=== PATIENT | female | born 1950 | race Caucasian/White ===

== ENCOUNTER → 2017-08-19 14:45 | Outpatient (CLI) | payer MEDICARE, OTHER, SELFPAY | PROVIDERS: Family Provider Family Medicine; PCP Family Medicine; Visit Provider Physician Assistant | DX: N39.0 Urinary tract infection, site not specified (principal) | CPT/HCPCS: 87086 ==

== ENCOUNTER → 2018-03-08 12:57 | Outpatient (CLI) | payer MEDICARE, OTHER, SELFPAY | PROVIDERS: Family Provider Family Medicine; PCP Family Medicine; Visit Provider Physician Assistant | DX: R39.89 Other symptoms and signs involving the genitourinary system (principal) | CPT/HCPCS: 87086 ==

== ENCOUNTER → 2018-03-14 08:47 | Outpatient (CLI) | payer MEDICARE, OTHER, SELFPAY ==
[2018-03-14 09:57] LABS: Influenza A and B by PCR Rapid Negative (Negative)
== END ==
PROVIDERS: Family Provider Family Medicine; PCP Family Medicine; Visit Provider Physician Assistant
DX: R68.89 Other general symptoms and signs (principal)
CPT/HCPCS: 87400

== ENCOUNTER 2018-03-14 09:13 | Emergency (ER) | payer MEDICARE, OTHER, SELFPAY ==
[2018-03-14 09:30] VITALS: BP 133/62; PULSE 79; RESP 18; TEMP 36.9; O2SAT 97
--- NOTE | 2018-03-14 09:41 | DI.RAD.S_ITS ---
PROCEDURE: XR CHEST 1V INDICATIONS: sepsis TECHNIQUE: One view of the chest was acquired. COMPARISON: [facility], CR, SHOULDER MINIMUM 2 VIEW LEFT, 09/25/2010, 13:22. FINDINGS: Surgical changes and devices: None. Lungs and pleura: No pleural effusions or pneumothorax. Lungs are clear. Mediastinum: Mediastinal contours appear normal. Heart size is normal. Bones and chest wall: Sclerotic lesion projecting in the surgical neck of the left humerus is unchanged since 09/25/10. IMPRESSION: No acute disease. Dictated by: Wolf Snider M.D. on 03/14/2018 at 10:22 Approved by: Wolf Snider M.D. on 03/14/2018 at 10:23
[2018-03-14 10:15] VITALS: TEMP 37.1
[2018-03-14] MEDS: KETOROLAC 60 MG/2 ML VIAL 15 MG IV (10:15)
[2018-03-14 10:19] LABS: Add Manual Diff / Slide Review NO; Basophils Absolute Auto 0 /uL (0-100); Basophils Percent Auto 0.3 % (0-2); Eosinophils Absolute Auto 0 /uL (0-450); Eosinophils Percent Auto 0.3 % (2-4); Hematocrit 40.4 % (36-46); Hemoglobin 13.4 g/dL (12.0-16.0); Lymphocytes Absolute Auto 500 /uL (1100-4500); Mean Corpuscular HGB Conc 33.2 % (30-36); Mean Corpuscular Hemoglobin 30.7 PG (26-34); Mean Corpuscular Volume 92.5 fL (80-100); Monocytes Absolute Auto 1200 /uL (0-900); Monocytes Percent Auto 9.4 % (3-14); Neutrophils Absolute Auto 11300 /uL (1500-7000); Platelet Count 219 X10^3/uL (150-400); Red Blood Cell Count 4.37 X10^6/uL (4.0-5.2); Red Cell Distribution Width 13.2 % (11.6-14.8); White Blood Cell Count 13.1 X10^3/uL (4.5-11.0)
[2018-03-14] MEDS: SODIUM CHLORIDE 0.9% 1,700.97 ML 566.99 ML IV (10:19)
[2018-03-14 10:30] VITALS: BP 140/87; PULSE 77; RESP 17; TEMP 37.1; O2SAT 98
[2018-03-14 10:39] LABS: Alanine Aminotransferase 31 IU/L (9-52); Albumin 4.7 g/dL (3.5-5.0); Albumin Globulin Ratio 1.3 (1.0-2.8); Alkaline Phosphatase 48 U/L (38-126); Aspartate Aminotransferase 48 IU/L (14-36); Bilirubin Total 0.6 mg/dL (0.2-1.3); Blood Urea Nitrogen 10 mg/dL (7-17); Calcium 9.5 mg/dL (8.4-10.2); Carbon Dioxide 28 mmol/L (22-32); Chloride 96 mmol/L (98-107); Estimated Glomerular Filt Rate > 60.0 mL/min (>60); Globulin 3.5 g/dL (1.7-4.1); Glucose 104 mg/dL (80-110); Potassium 4.5 mmol/L (3.4-5.1); Sodium 136 mmol/L (137-145); Total Protein 8.2 g/dL (6.3-8.2)
[2018-03-14 10:41] LABS: HEMOLYSIS 77 (0-50)
[2018-03-14 10:44] LABS: Lactate (Lactic Acid) 1.1 mmol/L (0.7-2.1)
[2018-03-14 10:55] LABS: Procalcitonin < 0.05 ng/mL (<0.5)
[2018-03-14 11:30] VITALS: BP 139/76; PULSE 75; RESP 16; O2SAT 97
[2018-03-14 11:46] LABS: Bacteria Urine Few (2-10); Culture Indicated Urine Specimen Cultured; RBC Urine 1-5/HPF (0-5/HPF); Squamous Epithelial Cell Urine 1-5 /HPF; WBC Urine 1-5/HPF (0-5/HPF)
[2018-03-14 12:21] VITALS: BP 141/78; PULSE 105; RESP 16; O2SAT 98
[2018-03-14 12:40] VITALS: BP 142/87; PULSE 76; RESP 16; TEMP 37.9; O2SAT 99
--- NOTE | 2018-03-14 12:47 | PC.NURSE ---
Patient is shivering, temp 100.2 orally. Patient refuses tylenol. DO Ramos aware, ok to DC.
[2018-03-14 14:10] LABS: Adenovirus F 40/41 Not Detected (Not Detect); Astrovirus Not Detected (Not Detect); Campylobacter Not Detected (Not Detect); Clostridium difficile toxin AB Not Detected (Not Detect); Cryptosporidium Not Detected (Not Detect); Cyclospora cayetanensis Not Detected (Not Detect); Entamoeba histolytica Not Detected (Not Detect); Enteroaggregative E.coli Not Detected (Not Detect); Enteropathogenic E.coli Not Detected (Not Detect); Enterotoxigenic E.coli It/st Not Detected (Not Detect); Giardia lamblia Not Detected (Not Detect); Norovirus GI/GII Not Detected (Not Detect); Plesiomonsa shigelloides Not Detected (Not Detect); Rotavirus A Not Detected (Not Detect); Salmonella Not Detected (Not Detect); Sapovirus Not Detected (Not Detect); Shiga-like toxin-prod E.coli Not Detected (Not Detect); Shigella/Enteroinvasive E.coli Not Detected (Not Detect); Vibrio Not Detected (Not Detect); Vibrio cholerae Not Detected (Not Detect); Yersinia enterocolitica Not Detected (Not Detect)
--- NOTE | 2018-03-14 14:47 | ED_ITS ---
HPI - Fever General Chief Complaint: Abdominal Pain Stated Complaint: having flu Symptoms. Time Seen by Provider: 03/14/18 09:24 Source: patient and family Mode of arrival: ambulatory Limitations: no limitations History of Present Illness HPI Narrative: 67-year-old female, nonsmoker with history of fibromyalgia and hypothyroidism presents from the walk-in clinic for evaluation of possible sepsis. She had been seen at the walk-in clinic about 1 week ago with classic UTI symptoms of dysuria, frequency and urgency and was placed on antibiotics. Her urine culture ended up being negative but the patient felt better until the past few days when she started developing multiple brought symptoms. She has had runny nose, nasal congestion and occasional sore throat with dry cough, subjective fever and chills, generalized abdominal discomfort and bloating with excessive flatus and occasional loose stools. She denies any rash or ongoing urinary complaints. She was recently in [place] but denies any obvious exposure to bad food. She has had no blood in her stool. MD complaint: fever, malaise and weakness Onset (ago): day(s) Temperature Source: subjective Context: recent travel Associated symptoms: chills, myalgias, headache, rhinorrhea, nasal congestion, sore throat, cough, abdominal pain, nausea and diarrhea Relieving factors: nothing Related Data Previous Rx's Medication Instructions Recorded triamcinolone acetonide [Triderm] 1 thuan TOPICAL BID #90 gm 04/02/17 progesterone micronized 200 mg 200 mg PO .COMPLEX #30 cap 10/02/17 capsule estradiol 1 mg tablet 1 mg PO QDAY #90 tab 10/21/17 liothyronine 25 mcg tablet 25 mcg PO DAILY #90 tab 12/17/17 levothyroxine 100 mcg tablet 100 mcg PO DAILY #90 tab 03/06/18 nitrofurantoin 100 mg PO BID 7 Days #14 cap 03/08/18 monohydrate/macrocrystals 100 mg capsule ciprofloxacin HCl 500 mg PO Q12H #20 tab 03/14/18 ketorolac 10 mg PO Q6H PRN #14 tab 03/14/18 metronidazole [Flagyl] 500 mg PO TID #30 tab 03/14/18 ondansetron 4 mg PO Q6-8H PRN #10 tab 03/14/18 Allergies Allergy/AdvReac Type Severity Reaction Status Date / Time codeine [CODEINE] Allergy Mild GI UPSET Verified 03/14/18 09:36 latex [LATEX] Allergy Mild ITCHY, Verified 03/14/18 09:36 REDNESS FROM PT TAPE Sulfa (Sulfonamide Allergy Mild UPSET Verified 03/14/18 09:36 Antibiotics) STOMACH [SULFA (SULFONAMIDE ANTIBIOTICS)] Review of Systems Constitutional Reports chills, Reports fever(s), Reports lethargy and Reports weakness Eyes Denies change in vision, Denies eye discharge, Denies irritation and Denies loss of vision ENT Ears, Nose, Mouth, and Throat: Denies change in voice, Reports nasal congestion , Reports nasal discharge, Denies neck pain and Reports sore throat Cardiovascular Denies chest pain, Denies irregular heart rhythm, Denies lightheadedness, Denies palpitations, Denies dyspnea, Denies dyspnea on exertion and Denies orthopnea Respiratory Reports cough, Denies dyspnea, Denies dyspnea on exertion and Denies wheezing Gastrointestinal Gastrointestinal: Reports abdominal pain, Reports bloating, Denies change in bowel habits, Reports excessive flatus, Denies diarrhea, Denies nausea and Denies vomiting Genitourinary Denies hematuria, Denies flank pain, Denies urinary incontinence and Denies urinary urgency Musculoskeletal Denies neck pain Integumentary/Breasts Denies pruritus, Denies erythema, Denies rash and Denies wounds Neurologic Denies confusion, Denies loss of vision and Reports weakness Psychiatric Denies anxiety, Denies confusion, Denies depression, Denies homicidal ideation and Denies suicidal ideation Endocrine Denies palpitations Hematologic/Lymphatic Denies easy bruising Allergic/Immunologic Denies wheezing PFSH Surgical History Status post hysterectomy Status post sclerotherapy of varicose veins Status post sclerotherapy of varicose veins Family History Brother Age: 70 Arthritis Mother Cancer Hypertension Social History Smoking Status: Never smoker Exam Narrative Exam Narrative: GENERAL: 67-year-old feel, appears to be uncomfortable and ill appearing. She is bundled up in warm blankets HEAD: Atraumatic. Normocephalic. No temporal or scalp tenderness. EYES: Pupils equal round and reactive. Extraocular motions intact. No scleral icterus. No injection or drainage. ENT: Clear nasal drainage bilaterally Nose without bleeding, purulent drainage or septal hematoma. Throat without erythema, tonsillar hypertrophy or exudate. Uvula midline. Airway patent. NECK: Trachea midline. No JVD or lymphadenopathy. Supple, nontender, no meningeal signs. CARDIOVASCULAR: Regular rate and rhythm without murmurs, gallops, or rubs. RESPIRATORY: Clear to auscultation. Breath sounds equal bilaterally. No wheezes , rales, or rhonchi. GASTROINTESTINAL: Abdomen soft, generalized discomfort with bloating and increased bowel sounds, nondistended. No hepato-splenomegaly, or palpable masses. No guarding. EXTREMITIES: No clubbing, cyanosis, or edema. No joint tenderness, effusion, or edema noted. BACK: Nontender without deformity or crepitance. No flank tenderness. NEURO: AOx3. SKIN: No rash or erythema. Initial Vital Signs Initial Vital Signs: Vital Signs Temperature 98.5 F 03/14/18 09:30 Pulse Rate 79 03/14/18 09:30 Respiratory Rate 18 03/14/18 09:30 Blood Pressure 133/62 03/14/18 09:30 Pulse Oximetry 97 03/14/18 09:30 Course Orders Ordered: ED Orders 03/14/18 09:41 XR chest 1V Stat 03/14/18 10:08 Complete Blood Count AUTO DIFF Stat Comprehensive Metabolic Panel Stat Lactate (Lactic Acid) Stat Procalcitonin Stat 03/14/18 10:22 Blood Culture Stat 03/14/18 10:30 Urine Culture Stat Urine Microscopic Stat 03/14/18 11:55 GI Panel Stat Discontinued Medications Sodium Chloride (Normal Saline 0.9%) 1,700.97 mls @ 566.99 mls/hr 30 ml/kg infuse over 3 hr (1700.97 ml) IV CONT JASMINA Last Infusion: 03/14/18 12:38 Dose: 0 mls/hr Admin: 03/14/18 10:19 Dose: 566.99 mls/hr Ketorolac Tromethamine (Toradol) 15 mg IV NOW ONE Stop: 03/14/18 09:43 Last Admin: 03/14/18 10:15 Dose: 15 mg Reevaluation(s) Reevaluation #1: Vital signs largely improved over duration of stay. She was able to produce a very small well-formed stool sample which was sent for GI panel Vital Signs - 8 hr 03/14/18 09:30 03/14/18 10:15 03/14/18 10:30 Temperature 98.5 F 98.7 F 98.7 F Pulse Rate 79 77 Respiratory Rate 18 17 Blood Pressure 133/62 Blood Pressure [Left Arm] 140/87 Pulse Oximetry 97 98 03/14/18 11:30 03/14/18 12:21 03/14/18 12:40 Temperature 100.2 F H Pulse Rate 75 105 H 76 Respiratory Rate 16 16 16 Blood Pressure Blood Pressure [Left Arm] 139/76 141/78 H 142/87 H Pulse Oximetry 97 98 99 MDM - Fever Lab Data Result diagrams: 03/14/18 10:08 03/14/18 10:08 Lab Results 03/14/18 03/14/18 03/14/18 Range/Units 10:08 10:08 10:08 WBC 13.1 H (4.5-11.0) X10^3/uL RBC 4.37 (4.0-5.2) X10^6/uL Hgb 13.4 (12.0-16.0) g/dL Hct 40.4 (36-46) % MCV 92.5 (80-100) fL MCH 30.7 (26-34) PG MCHC 33.2 (30-36) % RDW 13.2 (11.6-14.8) % Plt Count 219 (150-400) X10^3/uL Neut % (Auto) 86.0 H (50-75) % Lymph % (Auto) 4.0 L (25-40) % [place] % (Auto) 9.4 (3-14) % Eos % (Auto) 0.3 L (2-4) % Baso % (Auto) 0.3 (0-2) % Neut # (Auto) 00960 H (1159-5529) /uL Lymph # (Auto) 500 L (1032-3530) /uL [place] # (Auto) 1200 H (0-900) /uL Eos # (Auto) 0 (0-450) /uL Baso # (Auto) 0 (0-100) /uL Sodium 136 L (137-145) mmol/L Potassium 4.5 (3.4-5.1) mmol/L Chloride 96 L (98-107) mmol/L Carbon Dioxide 28 (22-32) mmol/L BUN 10 (7-17) mg/dL Creatinine 0.50 L (0.52-1.04) mg/dL Estimated GFR > 60.0 (>60) mL/min BUN/Creatinine Ratio 20.0 (6-22) Glucose 104 (80-110) mg/dL Lactate (0.7-2.1) mmol/L Calcium 9.5 (8.4-10.2) mg/dL Total Bilirubin 0.6 (0.2-1.3) mg/dL AST 48 H (14-36) IU/L ALT 31 (9-52) IU/L Alkaline Phosphatase 48 (38-126) U/L Total Protein 8.2 (6.3-8.2) g/dL Albumin 4.7 (3.5-5.0) g/dL Globulin 3.5 (1.7-4.1) g/dL Albumin/Globulin Ratio 1.3 (1.0-2.8) Procalcitonin < 0.05 (<0.5) ng/mL Urine RBC (0-5/HPF) Urine WBC (0-5/HPF) Ur Squamous Epith Cells Urine Bacteria (None) Ur Culture Indicated? Stl C. cayetanensis PCR (Not Detect) Stool Rotavirus (PCR) (Not Detect) Stool Adenovirus (PCR) (Not Detect) Stool Astrovirus (PCR) (Not Detect) Stool Cryptosporidium PCR (Not Detect) Stl E.coli Shiga Tox PCR (Not Detect) St Sh/Enteroin Ecoli PCR (Not Detect) Stool E coli O157 PCR (Not Detect) Stl Enterotoxigenic E PCR (Not Detect) Stool EPEC (PCR) (Not Detect) Stl E. histolytica PCR (Not Detect) Stool Giardia Lamblia PCR (Not Detect) Stool Sapovirus (PCR) (Not Detect) Stl P. shigelloides PCR (Not Detect) St Y.enterocolitica PCR (Not Detect) Stool Vibrio (PCR) (Not Detect) Stl Vibrio cholerae PCR (Not Detect) Stl Enteroaggr Ecoli PCR (Not Detect) Stl Norovirus GI/GII PCR (Not Detect) Campylobacter (PCR) (Not Detect) C. difficile Tox (PCR) (Not Detect) Salmonella (PCR) (Not Detect) 03/14/18 03/14/18 03/14/18 Range/Units 10:08 10:30 11:55 WBC (4.5-11.0) X10^3/uL RBC (4.0-5.2) X10^6/uL Hgb (12.0-16.0) g/dL Hct (36-46) % MCV (80-100) fL MCH (26-34) PG MCHC (30-36) % RDW (11.6-14.8) % Plt Count (150-400) X10^3/uL Neut % (Auto) (50-75) % Lymph % (Auto) (25-40) % [place] % (Auto) (3-14) % Eos % (Auto) (2-4) % Baso % (Auto) (0-2) % Neut # (Auto) (4956-0794) /uL Lymph # (Auto) (6020-0561) /uL [place] # (Auto) (0-900) /uL Eos # (Auto) (0-450) /uL Baso # (Auto) (0-100) /uL Sodium (137-145) mmol/L Potassium (3.4-5.1) mmol/L Chloride (98-107) mmol/L Carbon Dioxide (22-32) mmol/L BUN (7-17) mg/dL Creatinine (0.52-1.04) mg/dL Estimated GFR (>60) mL/min BUN/Creatinine Ratio (6-22) Glucose (80-110) mg/dL Lactate 1.1 (0.7-2.1) mmol/L Calcium (8.4-10.2) mg/dL Total Bilirubin (0.2-1.3) mg/dL AST (14-36) IU/L ALT (9-52) IU/L Alkaline Phosphatase (38-126) U/L Total Protein (6.3-8.2) g/dL Albumin (3.5-5.0) g/dL Globulin (1.7-4.1) g/dL Albumin/Globulin Ratio (1.0-2.8) Procalcitonin (<0.5) ng/mL Urine RBC 1-5/hpf (0-5/HPF) Urine WBC 1-5/hpf (0-5/HPF) Ur Squamous Epith Cells 1-5 /hpf Urine Bacteria Few (2-10) H (None) Ur Culture Indicated? Specimen cultured Stl C. cayetanensis PCR Not detected (Not Detect) Stool Rotavirus (PCR) Not detected (Not Detect) Stool Adenovirus (PCR) Not detected (Not Detect) Stool Astrovirus (PCR) Not detected (Not Detect) Stool Cryptosporidium PCR Not detected (Not Detect) Stl E.coli Shiga Tox PCR Not detected (Not Detect) St Sh/Enteroin Ecoli PCR Not detected (Not Detect) Stool E coli O157 PCR Not detected (Not Detect) Stl Enterotoxigenic E PCR Not detected (Not Detect) Stool EPEC (PCR) Not detected (Not Detect) Stl E. histolytica PCR Not detected (Not Detect) Stool Giardia Lamblia PCR Not detected (Not Detect) Stool Sapovirus (PCR) Not detected (Not Detect) Stl P. shigelloides PCR Not detected (Not Detect) St Y.enterocolitica PCR Not detected (Not Detect) Stool Vibrio (PCR) Not detected (Not Detect) Stl Vibrio cholerae PCR Not detected (Not Detect) Stl Enteroaggr Ecoli PCR Not detected (Not Detect) Stl Norovirus GI/GII PCR Not detected (Not Detect) Campylobacter (PCR) Not detected (Not Detect) C. difficile Tox (PCR) Not detected (Not Detect) Salmonella (PCR) Not detected (Not Detect) Urine Dip Bedside Urine Glucose Negative Bedside Urine Bilirubin - Negative Bedside Urine Ketone + 15 Urine Specific [place] 1.010 Bedside Urine Occult Blood + Bedside Urine pH 8.0 Bedside Urine Protein +/- 15 Bedside Urine Urobilinogen - Negative Bedside Urine Nitrite - Negative Bedside Urine Leukocytes +/- 15 Esterase MDM Narrative Medical decision making narrative: Multiple etiologies for patient's symptoms considered including: [Multiple etiologies including flu, pneumonia, infectious diarrhea, and bacteremia, versus other were considered] Patient's symptoms improved or duration of stay with above-stated therapies. Findings and discharge diagnosis discussed with patient/family followed by verbalization of understanding Return precautions discussed with patient/family whom verbalize understanding. Discharge Plan Departure Patient Disposition: Home Clinical Impression: Acute viral syndrome Discharge Date/Time: 03/14/18 12:57 Interventions: ED Discharge Assessment Last Done: 03/14/18 12:56 Instructions: DI for Viral Syndrome Activity Restrictions/Additional Instructions: 1. Drink plenty of fluids with frequent small sips. 2. For the next 24 hours a clear liquid diet is advised. After that please employ a brat diet which would include bananas, rice, apples, toast. 3. Please take medications as directed. Prescriptions sent to [facility] at your request 4. Please follow-up with your doctor in the next 1-2 days. Call the office for an appointment. 5. Please return to the emergency Department for any worsening or persistent symptoms, such as increasing pain or fever. Prescriptions: New ketorolac 10 mg tablet 10 mg PO Q6H PRN (Reason: pain) Qty: 14 RF: 0 ondansetron 4 mg tablet,disintegrating 4 mg PO Q6-8H PRN (Reason: nausea and vomiting) Qty: 10 RF: 0 metronidazole [Flagyl] 500 mg tablet 500 mg PO TID Qty: 30 RF: 0 ciprofloxacin HCl 500 mg tablet 500 mg PO Q12H Qty: 20 RF: 0 No Action nitrofurantoin monohyd/m-cryst [Macrobid] 100 mg capsule 100 mg PO BID 7 Days Qty: 14 RF: 0 triamcinolone acetonide [Triderm] 0.1 % cream 1 thuan Topical BID Qty: 90 RF: 0 progesterone micronized 200 mg capsule 200 mg PO .COMPLEX Qty: 30 RF: 1 estradiol [Estrace] 1 mg tablet 1 mg PO QDAY Qty: 90 RF: 3 liothyronine [Cytomel] 25 mcg tablet 25 mcg PO DAILY Qty: 90 RF: 0 levothyroxine 100 mcg tablet 100 mcg PO DAILY Qty: 90 RF: 0 Referrals: Erik Hernandez MD [Primary Care Provider] -
== END 2018-03-14 12:57 | disposition home or self-care (01) ==
PROVIDERS: Emergency Provider Emergency Medicine; Family Provider Family Medicine; PCP Family Medicine
DX: B34.9 Viral infection, unspecified (principal)
CPT/HCPCS: 36415; 36591; 71045; 80053; 81003; 81015; 83605; 84145; 85025; 87040; 87077; 87086; 87147; 87400; 87507; 96361; 96374; 99283; 99284; J1885

== ENCOUNTER → 2018-07-04 09:37 | Outpatient (CLI) | payer MEDICARE, OTHER, SELFPAY ==
--- NOTE | 2018-07-04 | DI.RAD.S_ITS ---
PROCEDURE: XR SHOULDER LT MIN 2V INDICATIONS: LEFT SHOULDER PAIN TECHNIQUE: 3 views of the shoulder were acquired. COMPARISON: [facility], , SHOULDER MINIMUM 2 VIEW LEFT, 09/25/2010, 13:22. FINDINGS: Bones: No fractures or dislocations. No suspicious bony lesions. A stable sclerotic lesion of rings and arcs in the humeral neck. Visualized ribs appear intact. Soft tissues: Wispy, linear calcification adjacent to the greater tuberosity at the rotator cuff insertion. IMPRESSION: 1 increased prominence of linear calcification suggesting rotator cuff calcific tendinitis towards the insertion on the greater tuberosity. 2. Stable enchondroma in the humeral neck. Dictated by: Darlene Long M.D. on 07/04/2018 at 12:01 Approved by: Darlene Long M.D. on 07/04/2018 at 12:04
== END ==
PROVIDERS: PCP Family Medicine; Visit Provider Family Medicine
DX: M25.512 Pain in left shoulder (principal); D16.02 Benign neoplasm of scapula and long bones of left upper limb
CPT/HCPCS: 73030

== ENCOUNTER → 2018-07-14 15:45 | Outpatient (CLI) | payer MEDICARE, OTHER, SELFPAY ==
[2018-07-14 17:05] LABS: Free T4, Direct Thyroxine 0.82 ng/dL (0.78-2.19)
[2018-07-14 17:19] LABS: Thyroid Stimulating Hormone 0.05 uIU/mL (0.47-4.68)
== END ==
PROVIDERS: PCP Family Medicine; Visit Provider Family Medicine
DX: E03.9 Hypothyroidism, unspecified (principal)
CPT/HCPCS: 36415; 84439; 84443

== ENCOUNTER 2018-08-06 12:11 | Emergency (ER) | payer MEDICARE, OTHER, SELFPAY ==
[2018-08-06 12:22] VITALS: BP 174/95; PULSE 85; RESP 16; TEMP 36.8; O2SAT 99; BMI 22.6
[2018-08-06 12:33] VITALS: BP 147/67; PULSE 81; O2SAT 99
[2018-08-06 12:44] LABS: Bacteria Urine None Seen
[2018-08-06 12:48] LABS: Add Manual Diff / Slide Review NO; Basophils Absolute Auto 0 /uL (0-100); Basophils Percent Auto 0.9 % (0-2); Eosinophils Absolute Auto 0 /uL (0-450); Eosinophils Percent Auto 0.8 % (2-4); Hematocrit 36.7 % (36-46); Hemoglobin 12.8 g/dL (12.0-16.0); Lymphocytes Absolute Auto 1000 /uL (1100-4500); Lymphocytes Percent Auto 19.4 % (25-40); Mean Corpuscular HGB Conc 34.7 % (30-36); Mean Corpuscular Hemoglobin 31.7 PG (26-34); Mean Corpuscular Volume 91.4 fL (80-100); Monocytes Absolute Auto 500 /uL (0-900); Monocytes Percent Auto 9.8 % (3-14); Neutrophils Absolute Auto 3500 /uL (1500-7000); Neutrophils Percent Auto 69.1 % (50-75); Platelet Count 274 X10^3/uL (150-400); Red Blood Cell Count 4.02 X10^6/uL (4.0-5.2); Red Cell Distribution Width 13.6 % (11.6-14.8)
[2018-08-06] MEDS: SODIUM CHLORIDE 0.9% 1,000 ML 1000 ML IV (12:49)
[2018-08-06 12:54] LABS: Culture Indicated Urine Cult Not Indicated; RBC Urine 0-1/HPF (0-5/HPF); Squamous Epithelial Cell Urine 0-1 /HPF (0-5/HPF); WBC Urine 0-1/HPF (0-5/HPF)
--- NOTE | 2018-08-06 12:57 | ED_ITS ---
HPI - Abdominal Pain <Heather Sifuentes, COMM[employer]ITY [employer]ST [employer]ICER-[employer] - Last Filed: 08/06/18 17:05> General Chief Complaint: Abdominal Pain Stated Complaint: Abd Pain Time Seen by Provider: 08/06/18 12:13 Source: patient Mode of arrival: ambulatory Limitations: no limitations History of Present Illness HPI narrative: The patient is a 14 year old female nonsmoker with history of IBS and fibromyalgia who presents with a chief complaint of worsening abdominal pain for the past several weeks. She states that her current pain episode started several weeks ago, but has been worse over the past few days. She complains of nausea but no vomiting. She denies any fevers shortness of breath chest pain. She states she had diarrhea this morning. She states she alternates between constipation and diarrhea. She states she has a history of irritable bowel syndrome. She complains of urinary frequency, but denies dysuria or urgency. She denies any abnormal flank pain or back pain. She states the pain is in her whole abdomen and is worse when she eats. She has not tried anything to help feel better other than one 200 mg ibuprofen which made the pain worse. The patient states that she has had 3 different abdominal surgeries- 1 hysterectomy 1 exploratory and 1 for an ectopic even years ago. Related Data Previous Rx's Medication Instructions Recorded triamcinolone acetonide [Triderm] 1 thuan TOPICAL BID #90 gm 04/02/17 ciprofloxacin HCl 500 mg PO Q12H #20 tab 03/14/18 ketorolac 10 mg PO Q6H PRN #14 tab 03/14/18 metronidazole [Flagyl] 500 mg PO TID #30 tab 03/14/18 ondansetron 4 mg PO Q6-8H PRN #10 tab 03/14/18 conjugated estrogens 0.625 mg/gram 1 applictn VAG DAILY #30 gram 03/19/18 vaginal cream progesterone micronized 200 mg 200 mg PO .COMPLEX #30 cap 03/31/18 capsule levothyroxine 100 mcg tablet 100 mcg PO DAILY #90 tab 07/09/18 estradiol 1 mg tablet 1 mg PO QDAY #90 tab 07/14/18 pantoprazole [Protonix] 40 mg PO BID #30 tab 08/06/18 Allergies Allergy/AdvReac Type Severity Reaction Status Date / Time codeine [CODEINE] Allergy Mild GI UPSET Verified 08/06/18 13:15 latex [LATEX] Allergy Mild ITCHY, Verified 08/06/18 13:15 REDNESS FROM PT TAPE Sulfa (Sulfonamide Allergy Mild UPSET Verified 08/06/18 13:15 Antibiotics) STOMACH [SULFA (SULFONAMIDE ANTIBIOTICS)] Review of Systems <Heather Sifuentes COMMUNITY CHEST OFFICER- - Last Filed: 08/06/18 17:05> Review of Systems GENERAL: Denies chills, fatigue, malaise, fever, sweats. HEENT: Denies sinus pain, ear pain, sore throat, difficulty swallowing, dizziness. RESPIRATORY: Denies dyspnea, cough, wheezing, hemoptysis, sputum. CARDIOVASCULAR: Denies chest pain, palpitations, orthopnea, edema, GASTROINTESTINAL: See HPI : See HPI MUSCULOSKELETAL: denies weakness, joint pain, or bony pain SKIN: Denies rash, skin lesions, or other NEUROLOGIC: Denies weakness, headache, numbness, change in speech, confusion, seizures, incoordination. PSYCHIATRIC: No concerning psychosocial issues. 12 point review of systems is negative except for those stated above PFSH <Heather DevlinSAMUEL [facility]onC[facility] - Last Filed: 08/06/18 17:05> Social History marital status: Smoking Status: Never smoker alcohol intake: current (1-2 A DAY ) substance use type: does not use Exam <Heather Sifuentes [facility] - Last Filed: 08/06/18 17:05> Narrative Exam Narrative: GENERAL: Thin female lying on stretcher, anxious appearing HEAD: Atraumatic. Normocephalic. No temporal or scalp tenderness. EYES: Pupils equal round and reactive. Extraocular motions intact. No scleral icterus. No injection or drainage. ENT: Nose without bleeding, purulent drainage or septal hematoma. Throat without erythema, tonsillar hypertrophy or exudate. Uvula midline. Airway patent. NECK: Trachea midline. No JVD or lymphadenopathy. Supple, nontender, no meningeal signs. CARDIOVASCULAR: Regular rate and rhythm without murmurs, gallops, or rubs. RESPIRATORY: Clear to auscultation. Breath sounds equal bilaterally. No wheezes, rales, or rhonchi. GASTROINTESTINAL: Abdomen soft, diffusely tender, nondistended. No hepato- splenomegaly, or palpable masses. No guarding. Active bowel sounds all 4 quadrants EXTREMITIES: No clubbing, cyanosis, or edema. No joint tenderness, effusion, or edema noted. BACK: Nontender without deformity or crepitance. No flank tenderness. NEURO: AOx3. SKIN: No rash or erythema. Initial Vital Signs Initial Vital Signs: Vital Signs Temperature 98.3 F 08/06/18 12:22 Pulse Rate 85 08/06/18 12:22 Respiratory Rate 16 08/06/18 12:22 Blood Pressure 174/95 H 08/06/18 12:22 Pulse Oximetry 99 08/06/18 12:22 <Garcia Baker DO - Last Filed: 08/06/18 17:11> Initial Vital Signs Initial Vital Signs: Vital Signs Temperature 98.3 F 08/06/18 12:22 Pulse Rate 85 08/06/18 12:22 Respiratory Rate 16 08/06/18 12:22 Blood Pressure 174/95 H 08/06/18 12:22 Pulse Oximetry 99 08/06/18 12:22 Course <VIKTOR Rome - Last Filed: 08/06/18 17:05> Orders Ordered: ED Orders 08/06/18 12:28 Urine Microscopic Stat 08/06/18 12:42 Amylase Stat Complete Blood Count AUTO DIFF Stat Comprehensive Metabolic Panel Stat Lipase Stat 08/06/18 13:13 CT abdomen pelvis w con Stat Discontinued Medications Al Hydrox/Mg Hydrox/Simethicone 20 ml/ Lidocaine HCl 15 ml 0 ml PO NOW ONE Stop: 08/06/18 14:15 Last Admin: 08/06/18 14:32 Dose: 35 ml Sodium Chloride (Normal Saline 0.9%) 1,000 mls @ 1,000 mls/hr IV BOLUS ONE Stop: 08/06/18 13:27 Last Infusion: 08/06/18 14:40 Dose: 0 mls/hr Admin: 08/06/18 12:49 Dose: 1,000 mls/hr Ondansetron HCl (Zofran) 4 mg IV NOW ONE Stop: 08/06/18 12:29 Last Admin: 08/06/18 12:49 Dose: Not Given Vital Signs - 8 hr 08/06/18 12:22 08/06/18 12:33 08/06/18 13:32 Temperature 98.3 F Pulse Rate 85 81 67 Respiratory Rate 16 Blood Pressure 174/95 H Blood Pressure [Left Arm] 147/67 H 126/50 L Pulse Oximetry 99 99 96 08/06/18 13:49 08/06/18 14:37 Temperature 98.1 F Pulse Rate 64 66 Respiratory Rate 16 16 Blood Pressure Blood Pressure [Left Arm] 126/50 L 120/55 L Pulse Oximetry 100 100 <Garcia Baker DO - Last Filed: 08/06/18 17:11> Orders Ordered: ED Orders 08/06/18 12:28 Urine Microscopic Stat 08/06/18 12:42 Amylase Stat Complete Blood Count AUTO DIFF Stat Comprehensive Metabolic Panel Stat Lipase Stat 08/06/18 13:13 CT abdomen pelvis w con Stat Discontinued Medications Al Hydrox/Mg Hydrox/Simethicone 20 ml/ Lidocaine HCl 15 ml 0 ml PO NOW ONE Stop: 08/06/18 14:15 Last Admin: 08/06/18 14:32 Dose: 35 ml Sodium Chloride (Normal Saline 0.9%) 1,000 mls @ 1,000 mls/hr IV BOLUS ONE Stop: 08/06/18 13:27 Last Infusion: 08/06/18 14:40 Dose: 0 mls/hr Admin: 08/06/18 12:49 Dose: 1,000 mls/hr Ondansetron HCl (Zofran) 4 mg IV NOW ONE Stop: 08/06/18 12:29 Last Admin: 08/06/18 12:49 Dose: Not Given Vital Signs - 8 hr 08/06/18 12:22 08/06/18 12:33 08/06/18 13:32 Temperature 98.3 F Pulse Rate 85 81 67 Respiratory Rate 16 Blood Pressure 174/95 H Blood Pressure [Left Arm] 147/67 H 126/50 L Pulse Oximetry 99 99 96 08/06/18 13:49 08/06/18 14:37 Temperature 98.1 F Pulse Rate 64 66 Respiratory Rate 16 16 Blood Pressure Blood Pressure [Left Arm] 126/50 L 120/55 L Pulse Oximetry 100 100 MDM - Abdominal Pain <VIKTOR [place] - Last Filed: 08/06/18 17:05> Lab Data Result diagrams: 08/06/18 12:42 08/06/18 12:42 Lab Results 08/06/18 08/06/18 08/06/18 Range/Units 12:28 12:42 12:42 WBC 5.0 (4.5-11.0) X10^3/uL RBC 4.02 (4.0-5.2) X10^6/uL Hgb 12.8 (12.0-16.0) g/dL Hct 36.7 (36-46) % MCV 91.4 (80-100) fL MCH 31.7 (26-34) PG MCHC 34.7 (30-36) % RDW 13.6 (11.6-14.8) % Plt Count 274 (150-400) X10^3/uL Neut % (Auto) 69.1 (50-75) % Lymph % (Auto) 19.4 L (25-40) % [place] % (Auto) 9.8 (3-14) % Eos % (Auto) 0.8 L (2-4) % Baso % (Auto) 0.9 (0-2) % Neut # (Auto) 3500 (1201-4832) /uL Lymph # (Auto) 1000 L (5666-2139) /uL [place] # (Auto) 500 (0-900) /uL Eos # (Auto) 0 (0-450) /uL Baso # (Auto) 0 (0-100) /uL Sodium 135 L (137-145) mmol/L Potassium 4.2 (3.4-5.1) mmol/L Chloride 99 (98-107) mmol/L Carbon Dioxide 27 (22-32) mmol/L BUN 11 (7-17) mg/dL Creatinine 0.60 (0.52-1.04) mg/dL Estimated GFR > 60.0 (>60) mL/min BUN/Creatinine Ratio 18.3 (6-22) Glucose 91 (80-110) mg/dL Calcium 9.5 (8.4-10.2) mg/dL Total Bilirubin 0.6 (0.2-1.3) mg/dL AST 45 H (14-36) IU/L ALT 28 (9-52) IU/L Alkaline Phosphatase 36 L (38-126) U/L Total Protein 7.3 (6.3-8.2) g/dL Albumin 4.4 (3.5-5.0) g/dL Globulin 2.9 (1.7-4.1) g/dL Albumin/Globulin Ratio 1.5 (1.0-2.8) Amylase 126 H (30-110) U/L Lipase 91 (23-300) U/L Urine RBC 0-1/hpf (0-5/HPF) Urine WBC 0-1/hpf (0-5/HPF) Ur Squamous Epith Cells 0-1 /hpf (0-5/HPF) Urine Bacteria None seen (None) Ur Culture Indicated? Cult not indicated Point of care testing: Urine Dip Bedside Urine Glucose Negative Bedside Urine Bilirubin - Negative Bedside Urine Ketone - Negative Urine Specific [place] 1.015 Bedside Urine Occult Blood +/- Bedside Urine pH 7.5 Bedside Urine Protein - Negative Bedside Urine Urobilinogen - Negative Bedside Urine Nitrite - Negative Bedside Urine Leukocytes - Negative Esterase Imaging Data CT scan - abdomen: Radiologist's impression: [address] [address] [address] Scan Report Signed Patient: Mariama Frey MARY#: [id number] : 9Acct:[id number] Age/Sex: 67 / FDate of Service: 08/06/18 Loc: ED Accession Number: [id number] Procedure: CT abdomen pelvis w con Ordering Provider: Heather SifuentesP- PROCEDURE: CT ABDOMEN PELVIS W CON INDICATIONS: abd pain, elevated amylase TECHNIQUE: After the administration of intravenous contrast, 5 mm thick sections acquired from the diaphragm to the symphysis. 5 mm coronal and sagittal reformats were acquired. For radiation dose reduction, the following was used: automated exposure control, adjustment of mA and/or kV according to patient size. COMPARISON: [facility], CT, IVP (ABD & PEL WWO CONTRAST), 07/17/2012, 9:30. FINDINGS: Image quality: Excellent. ABDOMEN: Lung bases: Lung bases are clear. Heart size is normal. Solid organs: Liver is normal in size and enhancement. Gallbladder is unremarkable. Biliary system is non dilated. Pancreas enhances normally. Spleen is normal in size and enhancement. No adrenal nodules. Kidneys demonstrate normal size and enhancement, without hydronephrosis. Peritoneum and bowel: Bowel loops demonstrate normal wall thickness and caliber. No free fluid or air. Nodes and vessels: No retroperitoneal or mesenteric adenopathy by size criteria. Aorta and inferior vena cava are normal in size. Miscellaneous: No ventral hernias. PELVIS: Genitourinary: Bladder wall thickness is normal. Miscellaneous: No inguinal hernias or adenopathy. Bones: No suspicious bony lesions. No vertebral body compression fractures. IMPRESSION: No evidence of acute abdominal process. No evidence of acute pancreatitis. Dictated by: David Baez M.D. on 08/06/2018 at 13:42 Approved by: David Baez M.D. on 08/06/2018 at 13:[address] [facility] Narrative Medical decision making narrative: The patient is a 67-year-old female with history of IBS who presents with a chief complaint of abdominal pain for several weeks. She does not have an elevated white blood cell count has no acute findings on her CT. She complained of nausea, so I offered her Zofran and she declined. Given that her pain is worsened by eating and NSAIDs, I discussed that her pain could likely be caused by a gastritis or acid issue. I offered her IV Protonix, which she declined. She did agree to take a GI cocktail to evaluate if that would help. I discussed at length dietary changes including decreasing coffee, acid, citrus, avoiding deep fried foods etc. Discussed use of [id number] omeprazole as well as Tums. Patient repeated declined medication use in the emergency department. I discussed at length follow up with primary care provider. I discussed that her symptoms could be from a combination of an acid problem as well as her chronic IBS. Patient agreed to try GI cocktail. I did give her prescription of Protonix. Encouraged follow-up with PCP. Discussed return precautions to ER. Patient has no questions or concerns upon discharge. <Garcia Baker, DO - Last Filed: 08/06/18 17:11> Lab Data Lab Results 08/06/18 08/06/18 08/06/18 Range/Units 12:28 12:42 12:42 WBC 5.0 (4.5-11.0) X10^3/uL RBC 4.02 (4.0-5.2) X10^6/uL Hgb 12.8 (12.0-16.0) g/dL Hct 36.7 (36-46) % MCV 91.4 (80-100) fL MCH 31.7 (26-34) PG MCHC 34.7 (30-36) % RDW 13.6 (11.6-14.8) % Plt Count 274 (150-400) X10^3/uL Neut % (Auto) 69.1 (50-75) % Lymph % (Auto) 19.4 L (25-40) % [place] % (Auto) 9.8 (3-14) % Eos % (Auto) 0.8 L (2-4) % Baso % (Auto) 0.9 (0-2) % Neut # (Auto) 3500 (8441-2557) /uL Lymph # (Auto) 1000 L (8077-6754) /uL [place] # (Auto) 500 (0-900) /uL Eos # (Auto) 0 (0-450) /uL Baso # (Auto) 0 (0-100) /uL Sodium 135 L (137-145) mmol/L Potassium 4.2 (3.4-5.1) mmol/L Chloride 99 (98-107) mmol/L Carbon Dioxide 27 (22-32) mmol/L BUN 11 (7-17) mg/dL Creatinine 0.60 (0.52-1.04) mg/dL Estimated GFR > 60.0 (>60) mL/min BUN/Creatinine Ratio 18.3 (6-22) Glucose 91 (80-110) mg/dL Calcium 9.5 (8.4-10.2) mg/dL Total Bilirubin 0.6 (0.2-1.3) mg/dL AST 45 H (14-36) IU/L ALT 28 (9-52) IU/L Alkaline Phosphatase 36 L (38-126) U/L Total Protein 7.3 (6.3-8.2) g/dL Albumin 4.4 (3.5-5.0) g/dL Globulin 2.9 (1.7-4.1) g/dL Albumin/Globulin Ratio 1.5 (1.0-2.8) Amylase 126 H (30-110) U/L Lipase 91 (23-300) U/L Urine RBC 0-1/hpf (0-5/HPF) Urine WBC 0-1/hpf (0-5/HPF) Ur Squamous Epith Cells 0-1 /hpf (0-5/HPF) Urine Bacteria None seen (None) Ur Culture Indicated? Cult not indicated Point of care testing: Urine Dip Bedside Urine Glucose Negative Bedside Urine Bilirubin - Negative Bedside Urine Ketone - Negative Urine Specific [place] 1.015 Bedside Urine Occult Blood +/- Bedside Urine pH 7.5 Bedside Urine Protein - Negative Bedside Urine Urobilinogen - Negative Bedside Urine Nitrite - Negative Bedside Urine Leukocytes - Negative Esterase Discharge Plan Departure Patient Disposition: Home Clinical Impression: Abdominal pain Qualifiers: Abdominal location: generalized Qualified Code(s): R10.84 - Generalized abdominal pain Discharge Date/Time: 08/06/18 14:59 Interventions: ED Discharge Assessment Last Done: 08/06/18 14:59 Instructions: DI for Abdominal Pain-Adult Activity Restrictions/Additional Instructions: Your overall workup in the emergency department showed no acute cause for her abdominal pain. Your CT scan had no acute findings. Given your history of pain worsening with eating as well as pain worsening with NSAIDs, I think it would be good to avoid NSAIDs, acidic food, citrus food, coffee, spicy food or deep fried fatty food. This can all worsen acid or gastritis issues. Please follow up with primary care provider. Please come back to the emergency department for any acute concerns such as chest pain, inability to tolerate oral fluids, etc I have given you a prescription for a trial of protonix to reduce your stomach acid. Prescriptions: New pantoprazole [Protonix] 40 mg tablet,delayed release (DR/EC) 40 mg PO BID Qty: 30 RF: 0 No Action triamcinolone acetonide [Triderm] 0.1 % cream 1 thuan Topical BID Qty: 90 RF: 0 progesterone micronized 200 mg capsule 200 mg PO .COMPLEX Qty: 30 RF: 5 levothyroxine 100 mcg tablet 100 mcg PO DAILY Qty: 90 RF: 0 estradiol [Estrace] 1 mg tablet 1 mg PO QDAY Qty: 90 RF: 3 conjugated estrogens 0.625 mg/gram cream 1 applictn VAG DAILY Qty: 30 RF: 3 ketorolac 10 mg tablet 10 mg PO Q6H PRN (Reason: pain) Qty: 14 RF: 0 ondansetron 4 mg tablet,disintegrating 4 mg PO Q6-8H PRN (Reason: nausea and vomiting) Qty: 10 RF: 0 metronidazole [Flagyl] 500 mg tablet 500 mg PO TID Qty: 30 RF: 0 ciprofloxacin HCl 500 mg tablet 500 mg PO Q12H Qty: 20 RF: 0 Referrals: Erik Hernandez MD [Primary Care Provider] - <Garcia Baker DO - Last Filed: 08/06/18 17:11> Cosign ED Attending Bernadette Attestation: I was available for consultation during this patient's emergency department encounter
[2018-08-06 12:59] LABS: Alanine Aminotransferase 28 IU/L (9-52); Albumin 4.4 g/dL (3.5-5.0); Albumin Globulin Ratio 1.5 (1.0-2.8); Alkaline Phosphatase 36 U/L (38-126); Amylase 126 U/L (30-110); Aspartate Aminotransferase 45 IU/L (14-36); BUN Creatinine Ratio 18.3 (6-22); Bilirubin Total 0.6 mg/dL (0.2-1.3); Blood Urea Nitrogen 11 mg/dL (7-17); Calcium 9.5 mg/dL (8.4-10.2); Carbon Dioxide 27 mmol/L (22-32); Chloride 99 mmol/L (98-107); Estimated Glomerular Filt Rate > 60.0 mL/min (>60); Globulin 2.9 g/dL (1.7-4.1); Glucose 91 mg/dL (80-110); HEMOLYSIS 38 (0-50); Lipase 91 U/L (23-300); Potassium 4.2 mmol/L (3.4-5.1); Sodium 135 mmol/L (137-145); Total Protein 7.3 g/dL (6.3-8.2)
--- NOTE | 2018-08-06 13:13 | DI.CT.S_ITS ---
PROCEDURE: CT ABDOMEN PELVIS W CON INDICATIONS: abd pain, elevated amylase TECHNIQUE: After the administration of intravenous contrast, 5 mm thick sections acquired from the diaphragm to the symphysis. 5 mm coronal and sagittal reformats were acquired. For radiation dose reduction, the following was used: automated exposure control, adjustment of mA and/or kV according to patient size. COMPARISON: [facility], CT, IVP (ABD & PEL WWO CONTRAST), 07/17/2012, 9:30. FINDINGS: Image quality: Excellent. ABDOMEN: Lung bases: Lung bases are clear. Heart size is normal. Solid organs: Liver is normal in size and enhancement. Gallbladder is unremarkable. Biliary system is non dilated. Pancreas enhances normally. Spleen is normal in size and enhancement. No adrenal nodules. Kidneys demonstrate normal size and enhancement, without hydronephrosis. Peritoneum and bowel: Bowel loops demonstrate normal wall thickness and caliber. No free fluid or air. Nodes and vessels: No retroperitoneal or mesenteric adenopathy by size criteria. Aorta and inferior vena cava are normal in size. Miscellaneous: No ventral hernias. PELVIS: Genitourinary: Bladder wall thickness is normal. Miscellaneous: No inguinal hernias or adenopathy. Bones: No suspicious bony lesions. No vertebral body compression fractures. IMPRESSION: No evidence of acute abdominal process. No evidence of acute pancreatitis. Dictated by: David Baez M.D. on 08/06/2018 at 13:42 Approved by: David Baez M.D. on 08/06/2018 at 13:46
[2018-08-06 13:32] VITALS: BP 126/50; PULSE 67; O2SAT 96
[2018-08-06 13:49] VITALS: BP 126/50; PULSE 64; RESP 16; O2SAT 100
[2018-08-06] MEDS: MAG HYDROX/ALUMINUM/SIMETH SUS 20 ML, LIDOCAINE VISCOUS 2% 15 ML PO (14:32)
[2018-08-06 14:37] VITALS: BP 120/55; PULSE 66; RESP 16; TEMP 36.7; O2SAT 100
== END 2018-08-06 14:59 | disposition home or self-care (01) ==
PROVIDERS: Emergency Provider Nurse Practitioner Family; PCP Family Medicine
DX: R10.84 Generalized abdominal pain (principal)
CPT/HCPCS: 36591; 74177; 80053; 81003; 81015; 82150; 83690; 85025; 99283; 99284; Q9967

== ENCOUNTER → 2018-12-18 16:44 | Outpatient (CLI) | payer MEDICARE, OTHER, SELFPAY ==
[2018-12-18 17:29] LABS: Add Manual Diff / Slide Review NO; Basophils Absolute Auto 0 /uL (0-100); Basophils Percent Auto 0.6 % (0-2); Eosinophils Absolute Auto 100 /uL (0-450); Eosinophils Percent Auto 1.1 % (2-4); Hematocrit 37.8 % (36-46); Hemoglobin 13.1 g/dL (12.0-16.0); Lymphocytes Absolute Auto 1000 /uL (1100-4500); Lymphocytes Percent Auto 16.2 % (25-40); Mean Corpuscular HGB Conc 34.6 % (30-36); Mean Corpuscular Volume 89.5 fL (80-100); Monocytes Absolute Auto 700 /uL (0-900); Monocytes Percent Auto 11.3 % (3-14); Neutrophils Absolute Auto 4200 /uL (1500-7000); Neutrophils Percent Auto 70.8 % (50-75); Platelet Count 255 X10^3/uL (150-400); Red Blood Cell Count 4.22 X10^6/uL (4.0-5.2)
== END ==
PROVIDERS: Optometrist; PCP Family Medicine; Visit Provider Family Medicine
DX: H11.33 Conjunctival hemorrhage, bilateral (principal)
CPT/HCPCS: 36415; 85025

== ENCOUNTER → 2018-12-26 14:56 | Outpatient (CLI) | payer MEDICARE, OTHER, SELFPAY ==
[2018-12-26 15:41] LABS: INR 1.1 (0.9-1.3); Prothrombin Time 12.2 SECONDS (10.1-12.7)
== END ==
PROVIDERS: PCP Family Medicine; Visit Provider Family Medicine
DX: H11.33 Conjunctival hemorrhage, bilateral (principal)
CPT/HCPCS: 36415; 85610

== ENCOUNTER → 2019-11-06 07:18 | Outpatient (CLI) | payer MEDICARE, OTHER, SELFPAY ==
[2019-11-06 08:32] LABS: Add Manual Diff / Slide Review NO; Basophils Absolute Auto 100 /uL (0-100); Basophils Percent Auto 1.1 % (0-2); Eosinophils Absolute Auto 100 /uL (0-450); Eosinophils Percent Auto 1.7 % (2-4); Hematocrit 38.8 % (36-46); Hemoglobin 13.2 g/dL (12.0-16.0); Lymphocytes Absolute Auto 1100 /uL (1100-4500); Lymphocytes Percent Auto 24.6 % (25-40); Mean Corpuscular Volume 91.2 fL (80-100); Monocytes Absolute Auto 600 /uL (0-900); Monocytes Percent Auto 12.8 % (3-14); Neutrophils Absolute Auto 2800 /uL (1500-7000); Neutrophils Percent Auto 59.8 % (50-75); Platelet Count 257 X10^3/uL (150-400); Red Blood Cell Count 4.25 X10^6/uL (4.0-5.2); Red Cell Distribution Width 14.1 % (11.6-14.8); White Blood Cell Count 4.6 X10^3/uL (4.5-11.0)
[2019-11-06 09:07] LABS: Alanine Aminotransferase 26 IU/L (<35); Albumin 4.2 g/dL (3.5-5.0); Albumin Globulin Ratio 1.6 (1.0-2.8); Alkaline Phosphatase 37 U/L (38-126); Aspartate Aminotransferase 41 IU/L (14-36); BUN Creatinine Ratio 13.2 (6-22); Bilirubin Total 0.7 mg/dL (0.2-1.3); Blood Urea Nitrogen 9 mg/dL (7-17); Calcium 9.3 mg/dL (8.4-10.2); Carbon Dioxide 32 mmol/L (22-32); Chloride 99 mmol/L (98-107); Cholesterol 236 mg/dL (140-199); Estimated Glomerular Filt Rate > 60.0 mL/min (>60); Globulin 2.7 g/dL (1.7-4.1); Glucose 86 mg/dL (80-110); HEMOLYSIS < 15 (0-50); Potassium 4.6 mmol/L (3.4-5.1); Sodium 135 mmol/L (137-145); Total Protein 6.9 g/dL (6.3-8.2); Triglycerides 69 mg/dL (35-150)
[2019-11-06 09:12] LABS: TSH w/ Reflex to FT4 4.58 uIU/mL (0.47-4.68)
[2019-11-06 09:16] LABS: HDL Cholesterol 127 mg/dL (40-60); LDL Cholesterol Calculated 95 mg/dL (<100)
== END ==
PROVIDERS: PCP Family Medicine; Referring Provider Registered Nurse Diabetes Educator; Visit Provider Registered Nurse Diabetes Educator
DX: E03.9 Hypothyroidism, unspecified (principal); R03.0 Elevated blood-pressure reading, without diagnosis of hypertension
CPT/HCPCS: 80053; 80061; 84443; 85025

== ENCOUNTER → 2021-06-30 13:11 | Outpatient (CLI) | payer MEDICARE, OTHER, SELFPAY ==
--- NOTE | 2021-06-30 13:27 | DI.CT.S_ITS ---
PROCEDURE: CT HEAD/BRAIN WO/W CON INDICATIONS: Headache, unspecified TECHNIQUE: 4.5 mm thick angled axial sections acquired from the foramen magnum to the vertex before and after the administration of intravenous contrast, with coronal and sagittal reformats. For radiation dose reduction, the following was used: automated exposure control, adjustment of mA and/or kV according to patient size. COMPARISON: None. FINDINGS: Image quality: Excellent. CSF Spaces: Basal cisterns are patent. No extra-axial fluid collections. Ventricles are normal in size and shape. Brain: No midline shift. There is mild, diffuse cerebral volume loss. There are mild periventricular and subcortical white matter chronic microvascular ischemic changes. No intracranial bleeds or masses. No abnormal intracranial enhancement. Major central cerebral vasculature demonstrates normal postcontrast enhancement. Pereira-white interface appears normal. Skull and face: Calvarium and visualized facial bones appear intact, without suspicious lesions. Sinuses: Visualized sinuses and mastoids are clear. IMPRESSION: 1. No acute intracranial disease process. 2. No abnormal intracranial mass or mass effect. 3. No suspicious postcontrast enhancement. Dictated by: Camelia Crawford MD, PhD on 06/30/2021 at 15:25 Approved by: Camelia Crawford MD, PhD on 06/30/2021 at 15:27
== END ==
PROVIDERS: PCP Nurse Practitioner Family; Referring Provider Nurse Practitioner Family; Visit Provider Nurse Practitioner Family
DX: R51.9 Headache, unspecified (principal)
CPT/HCPCS: 70470

== ENCOUNTER 2023-12-22 09:55 | Emergency (ER) | payer MEDICARE, OTHER, SELFPAY ==
[2023-12-22] VITALS (14 sets, daily range): BP systolic 123–147; BP diastolic 59–65; PULSE 73–98; RESP 18; TEMP 36.6–37.1; O2SAT 95–100; BMI 21.2
--- NOTE | 2023-12-22 11:02 | ED.GENADULT ---
HPI - General Adult General Chief complaint: Abdominal Pain Stated complaint: abd pain t-7, constipation Time Seen by Provider: 12/22/23 10:24 Mode of arrival: Ambulatory History of Present Illness HPI narrative: 72-year-old woman with a history of fibromyalgia, postmenopausal, hypothyroidism who presents with 7 days of abdominal pain. She notes she has been feeling more constipated and bloated. She typically has multiple bowel movements daily, went for 3 days without a bowel movement, increased her water intake an added fiber and has been having small bowel movement since. She has been eating significantly less as her belly has been hurting. She states there is rectal pain with bearing down. She is passing gas. Not complaining of dysuria or flank pain per se. No fevers or chills. She has had multiple prior gynecologic surgeries including ovarian cyst removals, ectopic and eventually hysterectomy. She has never had bowel obstructions. Related Data Previous Rx's Medication Instructions Recorded progesterone micronized 200 mg 200 mg PO .COMPLEX #90 caps 12/08/19 capsule ofloxacin 0.3 % ear drops 10 drp otic (ear) BID 7 days #10 mL 05/28/20 estradiol 1 mg tablet (Estrace) 1 mg PO QDAY #180 tabs 11/29/20 levothyroxine 100 mcg tablet 100 mcg PO DAILY #180 tabs 11/29/20 ciprofloxacin HCl 500 mg tablet 500 mg PO BID #20 tabs 12/22/23 metronidazole 500 mg tablet 500 mg PO Q8H #30 tabs 12/22/23 oxycodone-acetaminophen 5 mg-325 1 tab PO Q6H PRN pain #14 tabs 12/22/23 mg tablet Allergies Allergy/AdvReac Type Severity Reaction Status Date / Time codeine [CODEINE] Allergy Mild GI UPSET Verified 07/19/20 15:53 latex [LATEX] Allergy Mild ITCHY, Verified 07/19/20 15:53 REDNESS FROM PT TAPE Sulfa (Sulfonamide Allergy Mild UPSET Verified 07/19/20 15:53 Antibiotics) STOMACH [SULFA (SULFONAMIDE ANTIBIOTICS)] Review of Systems Review of Systems Narrative: Pertinent positive and negative findings as per HPI Patient History Medical History (Updated 12/22/23 @ 15:02 by Bettina Beltran MD) Elevated BP without diagnosis of hypertension Surgical History Status post sclerotherapy of varicose veins Status post sclerotherapy of varicose veins Status post hysterectomy Family History Brother Age: 76 Arthritis Mother Cancer Hypertension Social History marital status: Smoking Status: Never smoker alcohol intake: current (1-2 A DAY ) substance use type: does not use Smoking Status: Never smoker alcohol intake frequency: 0-2 drinks per day Substance Use Type: does not use Exam Initial Vital Signs Initial Vital Signs: Vital Signs Pulse Rate 98 H 12/22/23 10:05 Pulse Oximetry 99 12/22/23 10:05 General: Frail but in no acute distress. Able to give a complete and coherent history. Well-nourished well-developed HEENT: Moist mucous membranes, normal sclera with reactive pupils, Respiratory: Lungs are clear to auscultation, no wheezing no rales no rhonchi. Full and symmetrical air movement Cardiac: Regular rate and rhythm no murmurs no bruits Abdomen: Mildly distended, diffuse tenderness, no rebound or guarding. Rectal exam is unremarkable with no stool in the vault. No flank pain Skin: Warm and dry, no rashes Neurologic: Grossly neurologically intact with no obvious asymmetries or abnormalities Extremities: No trauma, well perfused, no edema Psych: Cooperative, appropriate insight and affect Course Orders Ordered: ED Orders 12/22/23 10:30 Complete Blood Count AUTO DIFF Stat Comprehensive Metabolic Panel Stat Lactate (Lactic Acid) Stat Lipase Stat 12/22/23 11:10 CT abdomen pelvis w con Stat 12/22/23 11:28 Urinalysis and Microscopic Stat Hydromorphone HCl (Hydromorphone 0.5 Mg Inj) 0.5 mg IV Q15MIN PRN PRN Reason: Pain, Discontinued Medications Sodium Chloride (Normal Saline 0.9%) 1,000 mls @ 1,000 mls/hr IV BOLUS ONE Stop: 12/22/23 12:09 Last Infusion: 12/22/23 13:00 Dose: Infused Documented By: Admin: 12/22/23 11:40 Dose: 1,000 mls/hr Documented By: CHEYENNE Ondansetron HCl (Ondansetron 4 Mg/2 Ml Inj) 4 mg IV NOW ONE Stop: 12/22/23 11:11 Last Admin: 12/22/23 11:40 Dose: 4 mg Documented By: CHEY[place]NE Vital Signs Vital signs: Vital Signs - 8 hr 12/22/23 10:05 12/22/23 10:07 12/22/23 10:07 Temperature Pulse Rate 98 H 90 Respiratory Rate Blood Pressure 130/61 Pulse Oximetry 99 99 Oxygen Delivery Method 12/22/23 10:08 12/22/23 11:44 12/22/23 11:45 Temperature 98.8 F Pulse Rate 98 H 83 84 Respiratory Rate 18 Blood Pressure 130/61 Pulse Oximetry 99 98 97 Oxygen Delivery Method Room Air 12/22/23 11:45 12/22/23 12:00 12/22/23 12:00 Temperature Pulse Rate 92 H Respiratory Rate Blood Pressure 132/61 129/59 L Pulse Oximetry 98 Oxygen Delivery Method 12/22/23 12:17 12/22/23 12:17 12/22/23 12:30 Temperature Pulse Rate 80 Respiratory Rate Blood Pressure 139/64 128/63 Pulse Oximetry 100 Oxygen Delivery Method 12/22/23 12:30 Temperature Pulse Rate 80 Respiratory Rate Blood Pressure Pulse Oximetry 100 Oxygen Delivery Method Medical Decision Making Lab Data 12/22/23 10:30 12/22/23 10:30 Labs: Lab Results 12/22/23 12/22/23 Range/Units 10:30 11:28 WBC 10.4 (4.5-11.0) X10^3/uL RBC 3.82 L (4.0-5.2) X10^6/uL Hgb 12.0 (12.0-16.0) g/dL Hct 34.9 L (36-46) % MCV 91.4 (80-100) fL MCH 31.4 (26-34) PG MCHC 34.4 (30-36) % RDW 13.3 (11.6-14.8) % Plt Count 357 (150-400) X10^3/uL Neut % (Auto) 78.4 H (50-75) % Lymph % (Auto) 7.4 L (25-40) % [place] % (Auto) 12.9 (3-14) % Eos % (Auto) 0.2 L (2-4) % Baso % (Auto) 1.1 (0-2) % Neut # (Auto) 8100 H (2974-1447) /uL Lymph # (Auto) 800 L (7740-1711) /uL [place] # (Auto) 1300 H (0-900) /uL Eos # (Auto) 0 (0-450) /uL Baso # (Auto) 100 (0-100) /uL Sodium 134 L (137-145) mmol/L Potassium 4.0 (3.4-5.1) mmol/L Chloride 100 (98-107) mmol/L Carbon Dioxide 27 (22-32) mmol/L BUN 7 (7-17) mg/dL Creatinine 0.51 L (0.52-1.04) mg/dL Estimated GFR > 60 (>60) mL/min BUN/Creatinine Ratio 13.7 (6-22) Glucose 96 (80-110) mg/dL Lactate 0.7 (0.7-2.1) mmol/L Calcium 9.2 (8.4-10.2) mg/dL Total Bilirubin 0.4 (0.2-1.3) mg/dL AST 27 (14-36) IU/L ALT 15 (<35) IU/L Alkaline Phosphatase 65 (38-126) U/L Total Protein 6.9 (6.3-8.2) g/dL Albumin 4.0 (3.5-5.0) g/dL Globulin 2.9 (1.7-4.1) g/dL Albumin/Globulin Ratio 1.4 (1.0-2.8) Lipase 116 (23-300) U/L Urine Color Yellow Urine Appearance Clear Urine pH 6.5 (4.5-8.0) Ur Specific [place] <=1.005 (1.000-1.035) Urine Protein Negative (Negative) Urine Glucose (UA) Negative (Negative) g/dL Urine Ketones Negative (NEGATIVE) Urine Occult Blood 1+ H (Negative) Urine Nitrate Negative (Negative) Urine Bilirubin Negative (NEGATIVE) Urine Urobilinogen 0.2 (0.2) E.U./dL Ur Leukocyte Esterase Negative (NEGATIVE) Urine RBC 1-5/hpf (0-5/HPF) Urine WBC None seen (0-5/HPF) Ur Squamous Epith Cells 5-10 /hpf H (0-5/HPF) Urine Bacteria None seen (None) Ur Culture Indicated? Cult not indicated Vol Urine Centrifuged 10ml (spun) Imaging Data CT scan - abdomen/pelvis: Radiologist's Impression: PROCEDURE: CT ABDOMEN PELVIS W CON INDICATIONS: abdominal pain TECHNIQUE: After the administration of intravenous contrast, axial sections acquired from the lung bases to the pubic symphysis. Coronal and sagittal reformats were performed. For radiation dose reduction, the following was used: automated exposure control, adjustment of mA and/or kV according to patient size. COMPARISON: [facility], CT, CT ABDOMEN PELVIS W CON, 08/06/2018, 13:19. FINDINGS: Image quality: Diagnostic. Lower Chest: No significant findings. ABDOMEN: Liver: No solid mass. Gallbladder: No radiopaque gallstones or wall thickening. Biliary ducts: No biliary dilation. Pancreas: No ductal dilation. Spleen: Size is within normal limits. Adrenal Glands: No adrenal nodules. Kidneys and Ureters: No hydronephrosis. No solid mass. No complex renal cystic lesion which requires follow up. Stomach and Bowel: The lack of significant intra-abdominal fat and lack of oral contrast make it quite difficult to evaluate the lower abdominal and pelvic bowel structures. Acute diverticulitis is suspected, as well as a probable small early abscess/phlegmon. The presumed abscess or phlegmon is present on image 94 of series 2, measuring 2.3 x 2.6 cm. It is an interloop abscess versus phlegmon and is not currently amenable to CT-guided drainage. Large fecal load. Peritoneum: No abnormal intraperitoneal fluid. No free air. Ventral Wall: No significant ventral hernia. Abdominal Nodes: No retroperitoneal or mesenteric adenopathy by size criteria. Vessels: Aorta and inferior vena cava are normal in size. PELVIS: Pelvic Organs: Unremarkable. Bladder: No bladder wall thickening, accounting for underdistention. Pelvic Nodes: No enlarged lymph nodes. Miscellaneous: No inguinal hernias are seen. Bones: No aggressive osseous abnormality. IMPRESSION: The pelvic structures are difficult to evaluate secondary to lack of significant fat and lack of oral contrast. Suspect acute diverticulitis and small phlegmon versus interloop abscess. Comment: Consider follow-up study in 2-3 days with oral and IV contrast. Dictated by: Dvaid Baez M.D. on 12/22/2023 at 12:52 MDM Narrative Medical decision making narrative: CC: 7 days of abdominal pain Complicating co-morbidities: Self-reported significant increased psychosocial stressors, change to bowel movement in the last 7 days, hypothyroidism Data collected from: patient Medical records reviewed: Prior family Medicine records reviewed Differential considered: Bowel obstruction, intra-abdominal infection, constipation, neoplastic process Exam documented above, pertinent findings include: Patient appears uncomfortable, mild abdominal distention, diffusely uncomfortable without rebound or guarding. No stool in the rectal vault Lab Test results independently reviewed as above. Pertinent findings: CBC shows no significant leukocytosis white count at 10.4 moderate left shift no anemia Chemistries are reassuring. No liver study abnormalities. Lipase is unremarkable Urine does not suggest urinary tract infection Imaging studies independently reviewed: CT scan of the abdomen is interpreted by the radiologist Suspect acute diverticulitis and small phlegmon versus interloop abscess Consultations: Care is discussed with Dr. Mcintyre. Given the normal white count, ability to return if she is worse, no evidence of sepsis he agrees that discharge home with oral antibiotics is reasonable for us treatment. Treatments: Started on ciprofloxacin and Flagyl, Re-evaluations: Discussion: 72-year-old woman with lower abdominal pain. Diverticulitis with possible phlegmon or interloop abscess without evidence of acute peritonitis or sepsis. With shared decision-making we opted for outpatient treatment follow up with Dr. Ackerman been early this week. Talked about use of Percocet for the severe pain that she is having and use of MiraLax fairly aggressively to try to get the large volume of stool that is currently feeling her colon to begin to move. At this point she is hemodynamically stable understands concerns, need to finish antibiotic course and follow up with Dr. Mcintyre as an outpatient. There was no indication for hospital admission or further imaging at this time. Questions are answered and she is safe for discharge Discharge Plan Departure Patient Disposition: Home Clinical Impression: Diverticulitis large intestine Qualifiers: Diverticulitis bleeding: without bleeding Diverticulitis complication: unspecified complication status Qualified Code(s): K57.32 - Diverticulitis of large intestine without perforation or abscess without bleeding Instructions: DI for Diverticulitis Activity Restrictions/Additional Instructions: Thank you for coming in today You do have diverticulitis. There may be a very small perforation, because you were so thin, it is difficult to tell completely on the CT scan. There was no obvious large abscess, you do not have overwhelming infection or sepsis. I did discuss your findings in your care with our general surgeon, Dr. Mcintyre. Together we agreed that going home with oral antibiotics would be safe. You will need to call [facility] at [phone] to follow up with Dr Mcintyre in the next couple of days. Regarding pain control, I have given you a prescription for Percocet. This can help with pain but will make the constipation worse. Regarding the constipation, you do have a significant amount of stool in your colon and this does need to come out. I would recommend that you chicken picker a large bottle of MiraLax when you get your antibiotics and pain medication. I would recommend a cap full of MiraLax in large glass of water, juice coffee, tea every 2 hours for 2-3 doses. You can continue using a dose of MiraLax until you began having stool returning. If you find that you are getting worse or develop any new symptoms, please feel free to return to the emergency department for further evaluation. [facility] Prescriptions: New ciprofloxacin HCl 500 mg tablet 500 mg PO BID Qty: 20 0RF metronidazole 500 mg tablet 500 mg PO Q8H Qty: 30 0RF oxycodone-acetaminophen 5-325 mg tablet 1 tab PO Q6H PRN (Reason: pain) Qty: 14 0RF No Action progesterone micronized 200 mg capsule 200 mg PO .COMPLEX Qty: 90 3RF Rx Instructions: 200 mg PO Every 3 days; ofloxacin 0.3 % drops 10 drp otic (ear) BID 7 Days Qty: 10 2RF estradiol [Estrace] 1 mg tablet 1 mg PO QDAY Qty: 180 1RF levothyroxine 100 mcg tablet 100 mcg PO DAILY Qty: 180 0RF Rx Instructions: Referrals: Radha Lovelace ARNP [Primary Care Provider] - Stand Alone Forms: Patient Portal/API
--- NOTE | 2023-12-22 11:10 | DI.CT.S_ITS ---
PROCEDURE: CT ABDOMEN PELVIS W CON INDICATIONS: abdominal pain TECHNIQUE: After the administration of intravenous contrast, axial sections acquired from the lung bases to the pubic symphysis. Coronal and sagittal reformats were performed. For radiation dose reduction, the following was used: automated exposure control, adjustment of mA and/or kV according to patient size. COMPARISON: [facility], CT, CT ABDOMEN PELVIS W CON, 08/06/2018, 13:19. FINDINGS: Image quality: Diagnostic. Lower Chest: No significant findings. ABDOMEN: Liver: No solid mass. Gallbladder: No radiopaque gallstones or wall thickening. Biliary ducts: No biliary dilation. Pancreas: No ductal dilation. Spleen: Size is within normal limits. Adrenal Glands: No adrenal nodules. Kidneys and Ureters: No hydronephrosis. No solid mass. No complex renal cystic lesion which requires follow up. Stomach and Bowel: The lack of significant intra-abdominal fat and lack of oral contrast make it quite difficult to evaluate the lower abdominal and pelvic bowel structures. Acute diverticulitis is suspected, as well as a probable small early abscess/phlegmon. The presumed abscess or phlegmon is present on image 94 of series 2, measuring 2.3 x 2.6 cm. It is an interloop abscess versus phlegmon and is not currently amenable to CT-guided drainage. Large fecal load. Peritoneum: No abnormal intraperitoneal fluid. No free air. Ventral Wall: No significant ventral hernia. Abdominal Nodes: No retroperitoneal or mesenteric adenopathy by size criteria. Vessels: Aorta and inferior vena cava are normal in size. PELVIS: Pelvic Organs: Unremarkable. Bladder: No bladder wall thickening, accounting for underdistention. Pelvic Nodes: No enlarged lymph nodes. Miscellaneous: No inguinal hernias are seen. Bones: No aggressive osseous abnormality. IMPRESSION: The pelvic structures are difficult to evaluate secondary to lack of significant fat and lack of oral contrast. Suspect acute diverticulitis and small phlegmon versus interloop abscess. Comment: Consider follow-up study in 2-3 days with oral and IV contrast. Dictated by: David Baez M.D. on 12/22/2023 at 12:52 Approved by: David Baez M.D. on 12/22/2023 at 13:03
[2023-12-22 11:35] LABS: Appearance Urine UA CLEAR; Bilirubin Urine UA NEGATIVE (NEGATIVE); Color Urine UA YELLOW; Glucose Urine UA NEGATIVE (Negative); Ketones Urine UA NEGATIVE (NEGATIVE); Leukocyte Esterase Urine UA NEGATIVE (NEGATIVE); Nitrite Urine UA NEGATIVE (Negative); Occult Blood Urine UA 1+ (Negative); Protein Urine UA NEGATIVE (Negative); Specific Gravity Urine UA <=1.005 (1.000-1.035); Urobilinogen Urine UA 0.2 E.U./dL (0.2)
[2023-12-22] MEDS: SODIUM CHLORIDE 0.9% 1,000 ML 1000 ML IV (11:40)
[2023-12-22] MEDS: ONDANSETRON 4 MG/2 ML INJ IV (11:40)
[2023-12-22 11:42] LABS: pH Urine UA 6.5 (4.5-8.0)
[2023-12-22 11:46] LABS: Add Manual Diff / Slide Review NO; Basophils Absolute Auto 100 /uL (0-100); Basophils Percent Auto 1.1 % (0-2); Eosinophils Absolute Auto 0 /uL (0-450); Eosinophils Percent Auto 0.2 % (2-4); Hematocrit 34.9 % (36-46); Lymphocytes Absolute Auto 800 /uL (1100-4500); Lymphocytes Percent Auto 7.4 % (25-40); Mean Corpuscular HGB Conc 34.4 % (30-36); Mean Corpuscular Hemoglobin 31.4 PG (26-34); Mean Corpuscular Volume 91.4 fL (80-100); Monocytes Absolute Auto 1300 /uL (0-900); Monocytes Percent Auto 12.9 % (3-14); Neutrophils Absolute Auto 8100 /uL (1500-7000); Neutrophils Percent Auto 78.4 % (50-75); Platelet Count 357 X10^3/uL (150-400); Red Blood Cell Count 3.82 X10^6/uL (4.0-5.2); Red Cell Distribution Width 13.3 % (11.6-14.8); White Blood Cell Count 10.4 X10^3/uL (4.5-11.0)
[2023-12-22 11:46] LABS: Bacteria Urine None Seen; Culture Indicated Urine Cult Not Indicated; RBC Urine 1-5/HPF (0-5/HPF); Squamous Epithelial Cell Urine 5-10 /HPF (0-5/HPF); Urine Volume 10mL (spun); WBC Urine None Seen (0-5/HPF)
[2023-12-22 11:55] LABS: Alanine Aminotransferase 15 IU/L (<35); Albumin Globulin Ratio 1.4 (1.0-2.8); Alkaline Phosphatase 65 U/L (38-126); Aspartate Aminotransferase 27 IU/L (14-36); BUN Creatinine Ratio 13.7 (6-22); Bilirubin Total 0.4 mg/dL (0.2-1.3); Blood Urea Nitrogen 7 mg/dL (7-17); Calcium 9.2 mg/dL (8.4-10.2); Carbon Dioxide 27 mmol/L (22-32); Chloride 100 mmol/L (98-107); Estimated Glomerular Filt Rate > 60 mL/min (>60); Globulin 2.9 g/dL (1.7-4.1); Glucose 96 mg/dL (80-110); HEMOLYSIS < 15 (0-50); Lactate (Lactic Acid) 0.7 mmol/L (0.7-2.1); Lipase 116 U/L (23-300); Sodium 134 mmol/L (137-145); Total Protein 6.9 g/dL (6.3-8.2)
== END 2023-12-22 16:13 | disposition home or self-care (01) ==
PROVIDERS: Emergency Provider Emergency Medicine; PCP Nurse Practitioner Family
DX: K57.32 Diverticulitis of large intestine without perforation or abscess without bleeding (principal)
CPT/HCPCS: 36415; 74177; 80053; 81001; 83605; 83690; 85025; 96361; 96374; 99284; J2405

== ENCOUNTER → 2024-06-17 10:24 | Outpatient (CLI) | payer MEDICARE, OTHER, SELFPAY ==
--- NOTE | 2024-06-17 10:26 | DI.MRI.S_ITS ---
PROCEDURE: MR STROKE Pre- and post-contrast brain MRI, non-contrast brain MR angiogram, pre- and postcontrast neck MR angiogram INDICATIONS: POSITIONAL HEADACHE,OSTEOPOROSIS,POSTMENO STATUS TECHNIQUE: Brain: Noncontrast axial T1 spin echo, axial T2 fast spin echo, sagittal and axial FLAIR, coronal T2 fast spin echo, axial gradient echo, axial diffusion and ADC through the brain. After the administration of contrast, axial 3D VIBE of the cranial vasculature and brain. Brain MRA: Non-contrast 3-D time of flight MR angiogram, with multiple vfoitkb-zciyjdmgv-wswkahpnwh (MIP) reformats performed. Neck MRA: Axial and sagittal TruFISP through the neck. Coronal dynamic MR angiogram during administration of contrast in the arterial and venous phases, with 3-dimenstional pbgkdwr-kpicpjhoa-udeoqpzzfv (MIP) reformats constructed from subtraction images. COMPARISON: None. FINDINGS: Image quality: Excellent. BRAIN: CSF spaces: Ventricles are normal in size and shape. Basal cisterns are patent. No extra-axial fluid collections. Brain: No intracranial bleeds or mass effects. Pereira-white matter interface is normal. Diffusion weighted images show no acute infarct. Age-related global volume loss and chronic microvascular ischemic changes are present. Brainstem appears normal. Normal intravascular flow voids are present. No abnormal intracranial enhancement. Skull and face: Calvarial marrow signal is normal. Bilateral lens replacements. Otherwise, the orbits are unremarkable. Sinuses: Sinuses and mastoids are clear. BRAIN MR ANGIOGRAM: Anterior circulation: Intracranial internal carotid arteries are normal in size and enhancement. The flow within the paired anterior cerebral arteries is normal and symmetric. The flow within the middle cerebral arteries is normal and symmetric. The anterior communicating artery is seen. No stenoses, occlusions, or aneurysms. Posterior circulation: The visualized portions of the vertebral arteries demonstrate normal caliber, and join to form a normal appearing basilar artery. The flow within the posterior cerebral arteries is normal and symmetric. No stenoses, occlusions, or aneurysms. NECK MR ANGIOGRAM: Carotids: Great vessels demonstrate a conventional anatomy as they arise from the aortic arch. The origins of the common carotid arteries appear patent. The calibers and courses of both common carotid arteries are normal. The bifurcation regions appear normal bilaterally. The internal carotid arteries demonstrate normal course and caliber. Posterior circulation: The origins of the vertebral arteries appear patent. More superior portions of both vertebral arteries demonstrate normal course and caliber, and join to form a normal appearing basilar artery. Miscellaneous: Subclavian arteries appear patent. Pre-contrast images through the neck show no soft tissue abnormalities. IMPRESSION: BRAIN MRI: No acute or subacute infarct. No acute intracranial abnormalities. Age-related global volume loss and chronic microvascular ischemic changes. BRAIN MR ANGIOGRAM: No significant arterial abnormalities. NECK MR ANGIOGRAM: No significant arterial abnormalities. Dictated by: Rodrigue Hidalgo M.D. on 06/17/2024 at 13:15 Approved by: Rodrigue Hidalgo M.D. on 06/17/2024 at 13:25
--- NOTE | 2024-06-17 10:27 | DI.RAD.S_ITS ---
PROCEDURE: XR DEXA AXIAL SKELETON INDICATIONS: POSITIONAL HEADACHE,OSTEOPOROSIS,POSTMENO STATUS COMPARISON: 10/31/2004. FINDINGS: Lumbar Spine: Bone mineral density is 0.896 g/cm2, T score -1.4, previously -0.9. Left Femoral Neck: Bone mineral density 0.676 g/cm2, T score -1.6. Left Hip: Bone mineral density 0.848 g/cm2, T score -0.8, previously -0.4. Fracture Risk Calculation (when applicable): 10-year fracture risk of a major osteoporotic fracture 9.9 percent and of a hip fracture 2.2 percent. (T score greater or equal to -1.0 to: NORMAL) (T score from -1.1 to -2.4: OSTEOPENIA) (T score less than or equal to -2.5: OSTEOPOROSIS) IMPRESSION: Osteopenia Follow-up guidelines as follows: Osteoporosis: Consider a repeat DEXA and Vertebral Fracture Assessment (VFA) exam in 2 years or sooner if medically necessary, to reassess this patient's status. Osteopenia: Consider a repeat DEXA in 2-3 years to reassess this patient's status, or if there is a new clinical indication. Normal: Consider a repeat DEXA in 5 years or sooner, or if there is a new clinical indication. All treatment decisions require clinical judgment and consideration of individual patient factors, including patient preferences, comorbidities, previous drug use, risk factors not captured in the FRAX model (e.g., frailty, falls, vitamin D deficiency, increased bone turnover, interval significant decline in bone density ) and possible under- or over-estimation of fracture risk by FRAX. In addition, the NOF Guide recommends that FDA-approved medical therapies be considered in postmenopausal women and men age >= 50 years with a: * Hip or vertebral (clinical or morphometric) fracture * T-score of <=-2.5 at the spine or hip * Ten-year fracture probability by FRAX of >= 3% for hip fracture or >=20% for major osteoporotic fracture. Approved by: Claude Hernandez M.D. on 06/17/2024 at 18:54
== END ==
PROVIDERS: PCP Registered Nurse; Referring Provider Registered Nurse; Visit Provider Registered Nurse
DX: M85.89 Other specified disorders of bone density and structure, multiple sites (principal); R51.0 Headache with orthostatic component, not elsewhere classified; Z13.820 Encounter for screening for osteoporosis; Z78.0 Asymptomatic menopausal state
CPT/HCPCS: 70544; 70549; 70553; 77080; A9579